=== PATIENT | female | born 1975 | race Caucasian/White ===

== ENCOUNTER 2017-03-06 20:28 | Emergency (ER) | payer OTHER ==
--- NOTE | 2017-03-06 20:47 | EDPHY ---
H & P HPI/ROS: HPI CHIEF COMPLAINT: Right eye floaters and fogginess, no eye pain no trauma. HISTORY OF PRESENT ILLNESS: The patient very pleasant 41-year-old female, history of celiac disease and thyroid disease, otherwise healthy, presents to the emergency room with right eye floaters and fogginess x1 day. She does tell me that she took a flight on Saturday notice some abnormal amount of floaters. This then resolved. Earlier today she noticed some eye floaters and fogginess or a hazy sensation. She denies double vision, denies eye pain, denies trauma, denies tearing, denies loss of vision or black vision. Denies central loss of vision. She does tell me that she also has a little bit of a right-sided headache. No trauma. No fever. No neck pain. She was seen at Urgent Care prior to arrival and now presents to the emergency room for further evaluation. Past Medical History: Thyroid disease, celiac disease Past Surgical History: No recent surgical history Social History: Denies daily use of drugs alcohol tobacco products. Family History: Noncontributory ROS REVIEW OF SYSTEMS: A comprehensive 10 point review of systems is otherwise negative aside from elements mentioned in the history of present illness. Exam Constitutional triage nursing summary reviewed, vital signs reviewed, awake/ alert. Eyes left Eye Normal. Right eye: Extraocular movements intact. Pupils equal round react to light. Anterior chamber slit-lamp exam is unremarkable. There is no flare. Visual guan intact. Visual acuity reviewed. Nontender palpation globe. Soft globe. Not hard. Lids everted no foreign bodies. External eye exam lids and orbit are normal. No surrounding redness. Posterior eye exam without dilatation I do not appreciating acute on eye exam. I also ultrasound her eye. Ultrasound of the eye shows no retinal detachment or vitreous hemorrhage. Lungs appear to be in place. She does wear contacts. There are no contacting this time. Unclear etiology at this time of floaters. Globe pressure normal. 10, 11, 10 HENT normal inspection, atraumatic, moist mucus membranes, no epistaxis, neck supple/ no meningismus, no raccoon eyes. Respiratory clear to auscultation bilaterally, normal breath sounds, no respiratory distress, no wheezing. Cardiovascular rate normal, regular rhythm, no murmur, no edema, distal pulses normal. Gastrointestinal soft, non-tender, no rebound, no guarding, normal bowel sounds, no distension, no pulsatile mass. Genitourinary no CVA tenderness. Musculoskeletal no midline vertebral tenderness, full range of motion, no calf swelling, no tenderness of extremities, no meningismus, good pulses, neurovascularly intact. Skin pink, warm, & dry, no rash, skin atraumatic. Neurologic awake, alert and oriented x 3, AAOx3, moves all 4 extremities equally, motor intact, sensory intact, CN II-XII intact, normal cerebellar, normal vision, normal speech. Psychiatric normal mood/affect. Heme/Lymph/Immune no lymphadenopathy. Differential Diagnosis: Includes but is not limited to in a particular order retinal detachment, vitreous hemorrhage, glaucoma, ocular migraine Medical Decision Making: Plan for this patient full eye exam. Including pressures. Including ultrasound. Is unremarkable exam here in the emergency room I do recommend she follows up with Ophthalmology closely tomorrow. Abnormal amount of floaters can indicate a small retinal detachment. Will most likely need formal eye exam by watershed program manager she understands this. Re-evaluation: 2112: Visual acuity reviewed. And documented by nursing staff. Ultrasound shows no retinal detachment no vitreous hemorrhage. Lens in place. Eye pressures were normal. Recommend close ophthalmology follow-up is possible is ocular migraine. She understands follow-up with Ophthalmology tomorrow. Contact information provided. She understands to follow up with them without fail. Source: Patient - Personal History Tetanus Vaccine Date: UNK Constitutional: Initial Vital Signs Temperature (C) 36.6 C 03/06/17 20:35 Heart Rate 65 03/06/17 20:35 Respiratory Rate 16 03/06/17 20:35 Blood Pressure 136/90 H 03/06/17 20:35 O2 Sat (%) 99 03/06/17 20:35 O2 Delivery Mode Room Air Allergies/Adverse Reactions: Penicillins Allergy (Unknown, Verified 03/06/17 20:56) gluten Allergy (Verified 03/06/17 20:59) Home Medications: Medication Instructions Recorded Levothyroxine 03/06/17 Medical Decision Making - Data Points Medications Given: Discontinued Medications Proparacaine HCl (Alcaine 0.5%) 2 drops OP EDNOW ONE Stop: 03/06/17 21:02 Last Admin: 03/06/17 21:06 Dose: 2 drops Departure - Departure Disposition: Home, Routine, Self-Care Clinical Impression: Vitreous floaters of right eye Condition: Good Instructions: Blurred Vision (ED), Visual Floaters (ED) Additional Instructions: 1. Please follow up with Ophthalmology tomorrow please call their for an appointment in the morning. You must be seen by them tomorrow. Referrals: NONE *PRIMARY CARE P,. [Primary Care Provider] - As per Instructions Tonio Shepard MD [Medical Doctor] - As per Instructions
[2017-03-06] MEDS ORDERED: PROPARACAINE 0.5% 15 ML OPHT DROP OP ONE (21:01)
[2017-03-06 21:11] VITALS: BP 136/90; PULSE 65; RESP 16; TEMP 97.9; O2SAT 99
== END 2017-03-06 21:21 | disposition home or self-care (01) ==
LOC: CED 20:28
DX: H43.391 Other vitreous opacities, right eye (principal)

== ENCOUNTER → 2017-07-22 | Outpatient (CLI) | payer OTHER | LOC: BMCIMAGING 15:07 | PROVIDERS: ATTEND Obstetrics & Gynecology | DX: D25.0 Submucous leiomyoma of uterus (principal) ==

== ENCOUNTER → 2017-11-29 | Outpatient (CLI) | payer OTHER | LOC: FIMAGING 10:41 | PROVIDERS: ATTEND Obstetrics & Gynecology | DX: D25.9 Leiomyoma of uterus, unspecified (principal); N83.202 Unspecified ovarian cyst, left side ==

== ENCOUNTER → 2018-02-28 | Outpatient (CLI) | payer OTHER | LOC: FIMAGING 15:37 | PROVIDERS: ATTEND Obstetrics & Gynecology | DX: D25.1 Intramural leiomyoma of uterus (principal); Z87.42 Personal history of other diseases of the female genital tract ==

== ENCOUNTER → 2018-04-18 | Outpatient (CLI) | payer OTHER ==
[~2018-04-18] MED LIST: GADOBUTROL 10 ML VIAL IVP ONE
== END ==
LOC: FIMAGING 08:04
PROVIDERS: ATTEND Radiology Diagnostic Radiology
DX: D25.9 Leiomyoma of uterus, unspecified (principal); N83.201 Unspecified ovarian cyst, right side
CPT/HCPCS: A9585

== ENCOUNTER 2018-07-07 07:13 | Observation (INO) | payer OTHER ==
[2018-07-07] MEDS ORDERED: ALTEPLASE 2 MG VIAL IVP PRN (07:39)
[2018-07-07] MEDS ORDERED: MIDAZOLAM 2 MG/2 ML VIAL IVP PRN (07:39)
[2018-07-07] MEDS ORDERED: MEPERIDINE 25 MG/ML SYR IVP PRN (07:39)
[2018-07-07] MEDS ORDERED: DEXAMETHASONE 10 MG/ML VIAL IVP ONE (07:39)
[2018-07-07] MEDS ORDERED: KETOROLAC 30 MG/1 ML SDV IVP ONE (07:39)
[2018-07-07] MEDS ORDERED: fentaNYL 100 MCG/2 ML INJ IVP PRN (07:39)
[2018-07-07] MEDS ORDERED: NS 1,000 ML IV ONE (07:39)
[2018-07-07] MEDS ORDERED: SCOPOLAMINE HYDROBROMIDE 1 MG/3 DAYS PATCH TD ONE (07:39)
[2018-07-07] MEDS ORDERED: FLUMAZENIL 0.5 MG/5 ML MDV IVP PRN (07:39)
[2018-07-07] MEDS ORDERED: NALOXONE HCL 0.4 MG/ML INJ IVP PRN ×2 (07:39→08:16)
[2018-07-07] MEDS ORDERED: KETOROLAC 15 MG/1 ML SDV ONE (08:15)
[2018-07-07] MEDS ORDERED: HYDROmorphONE/DILAUDID 6 MG/30 ML PCA IV PRN (08:16)
--- NOTE | 2018-07-07 08:17 | PDRADPRE ---
Radiology History & Physical Indication for procedure: fibroid,symptomatic Home medications: Ibuprofen PRN MDD 2400 07/01/18 [Last Taken Unknown] Thyroid,Pork [ARMOUR THYROID] 45 mg PO AD 07/01/18 [Last Taken 07/01/18 08:00] Allergies/Adverse Reactions: Penicillins Allergy (Unknown, Verified 03/06/17 20:56) gluten Allergy (Verified 03/06/17 20:59) Mental status: A&Ox3 Heart exam: regular rate and rhythm
--- NOTE | 2018-07-07 08:17 | PDPROPOC ---
Sedation Plan of Care ASA Classification: ASA 2 Mallampati Score: Class 2 Mallampati Reference Image:
[2018-07-07 08:20] LABS: PLATELET COUNT 277 10^3/uL (150-400)
[2018-07-07] MEDS ORDERED: DEXMEDETOMIDINE HCL 200 MCG in NS 50 ML IV ONE (08:30)
[2018-07-07 08:31] LABS: INR 0.9 (0.83-1.16); PROTIME(PATIENT) 12.4 SEC (12.0-15.0)
[2018-07-07] MEDS ORDERED: LIDOCAINE 1% 300 MG/30 ML SDV ONE (08:40)
[2018-07-07] MEDS ORDERED: IOPAMIDOL (ISOVUE-300) 100 ML BTL ONE ×3 (08:40→11:40)
[2018-07-07] MEDS ORDERED: LIDOCAINE 1% 5 ML SDV NB ONE (09:00)
[2018-07-07] MEDS ORDERED: NITROGLYCERIN/D5W 50 MG/250 ML BOTTLE IV ONE (09:59)
[2018-07-07] MEDS ORDERED: MIDAZOLAM 2 MG/2 ML VIAL ONE (11:15)
[2018-07-07] MEDS ORDERED: fentaNYL 100 MCG/2 ML INJ ONE (11:15)
[2018-07-07] MEDS ORDERED: LACTULOSE 20 GM/30 ML UDCUP PO PRN (12:29)
[2018-07-07] MEDS ORDERED: POLYETHYLENE GLYCOL 3350 17 GM PKT PO PRN (12:29)
[2018-07-07] MEDS ORDERED: ONDANSETRON 4 MG/2 ML VIAL IVP PRN (12:29)
[2018-07-07] MEDS ORDERED: BISACODYL 10 MG SUPP PR PRN (12:29)
[2018-07-07] MEDS ORDERED: MAGNESIUM HYDROXIDE 30 ML UDCUP PO PRN (12:29)
[2018-07-07] MEDS ORDERED: NS 1,000 ML IV SCH (12:30)
[2018-07-07] MEDS ORDERED: morphINE PCA 30 MG/30 ML PCA IV PRN (12:31)
--- NOTE | 2018-07-07 12:42 | PDRADPN ---
Radiology Procedure Note Date of Procedure: 07/07/18 Radiologist: Vimal Erazo Anesthesia: IV Sedation Pre-op Diagnosis: fibroids Post-op Diagnosis: same Procedure: UFE Inf/Abcess present in the surg proc area at time of surgery?: No
[2018-07-07] MEDS: oxyCODONE IR 5 MG TAB PO PRN ×2 (14:50→20:59)
[2018-07-07] MEDS: KETOROLAC 30 MG/1 ML SDV IVP SCH ×2 (18:02→23:51)
[2018-07-07] MEDS: SENNOSIDES/DOCUSATE SODIUM TAB PO SCH (19:09)
[2018-07-08] MEDS: oxyCODONE IR 5 MG TAB PO PRN ×2 (01:39→11:50)
[2018-07-08] MEDS: KETOROLAC 30 MG/1 ML SDV IVP SCH (06:16)
[2018-07-08 08:34] VITALS: BP 130/80
[2018-07-08] MEDS: SENNOSIDES/DOCUSATE SODIUM TAB PO SCH (09:12)
== END 2018-07-08 12:22 | disposition home or self-care (01) ==
LOC: FIMAGING 07:13 → F3E 12:29 → FOB 14:29
PROVIDERS: ADMIT Radiology Diagnostic Radiology; ATTEND Radiology Diagnostic Radiology
DX: D25.9 Leiomyoma of uterus, unspecified (principal); Z88.0 Allergy status to penicillin
CPT/HCPCS: 37243; 75736; 76937; 99152; 99153; C1769; C1894; G0378; C1760; J1100; J1170; J1644; J1885; J1956; J2250; J2310; J2405; J3010; Q9967

== ENCOUNTER → 2018-10-31 | Outpatient (CLI) | payer OTHER | LOC: BMCIMAGING 15:46 | PROVIDERS: ATTEND Family Medicine | DX: J98.4 Other disorders of lung (principal) ==

== ENCOUNTER → 2019-01-09 | Outpatient (CLI) | payer OTHER | LOC: FIMAGING 14:14 | PROVIDERS: ATTEND Internal Medicine Endocrinology, Diabetes & Metabolism | DX: E06.3 Autoimmune thyroiditis (principal) ==